=== PATIENT | male | born 1940 | race Caucasian/White ===

== ENCOUNTER 2017-07-27 16:36 | Inpatient (IN) | payer OTHER ==
[2017-07-27] MEDS ORDERED: VANCOMYCIN HCL/NORMAL SALINE 250 ML IV ONE (17:03)
--- NOTE | 2017-07-27 17:05 | EDPHY ---
H & P Time Seen by Provider: 07/27/17 16:46 HPI/ROS: CHIEF COMPLAINT: Right foot redness HISTORY OF PRESENT ILLNESS: Patient had foot surgery earlier this month in July approximately 3 and half weeks ago. This involved the release of his 2nd toe. The patient and his can't remember the exact date. For the past 3 weeks he has had redness and swelling in the right foot and has been on sequentially Augmentin, ciprofloxacin and minocycline, and then oral clindamycin without improvement. 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 Patient's redness is in his right foot and extends fdc up the foot. Still a bit painful but not associated fever or chills. He does have a significant swelling of his foot and lower leg. Not better worse with anything. Symptoms do not radiate. REVIEW OF SYSTEMS: Eye: no change in vision ENT: no sore throat Cardiac: no chest pain or syncope Pulmonary: no cough or SOB Abdomen: no vomiting, diarrhea, abdominal pain Musculoskeletal: Foot symptoms as outlined above, right lower extremity edema. Skin: HPI Neuro: no headache Constitutional: no fever : no urinary symptoms A comprehensive 10 point review of systems is otherwise negative aside from elements mentioned in the history of present illness. PAST MEDICAL HISTORY: Includes type 2 diabetes, Hairy cell leukemia, hypertension. Social history: , here with his spouse. General Appearance: Alert and conversant, cooperative. Eyes: No scleral icterus. ENT, Mouth: Normal mucous membranes. Respiratory: Normal respiratory effort, breath sounds equal, lungs are clear to auscultation. Cardiovascular: Regular rate and rhythm. Both feet warm, appear perfused. Gastrointestinal: Abdomen is soft and non tender. Neurological: Alert and oriented x3. Normally conversant. Face symmetric, he is ambulatory. He does have sensation to light touch in both feet. Skin: Redness and warmth in all the toes of the right foot extending to the mid forefoot. No blisters crepitus or eschar. He does have a callus with a little bit of open wound on the 3rd or middle toe on the plantar surface. Musculoskeletal: Right lower extremity swelling and 3+ edema but compartments are soft. Psychiatric: Not agitated. Emergency Department course/MDM: Patient will be admitted for IV antibiotics and further imaging following failure of outpatient oral antibiotic therapy. Discussed with hospitalist and with Infectious Disease therapeutic consultant Grace Medley who requests vancomycin without other broad-spectrum antibiotics. MRI ordered at the request of his sludge mill operator Dr. Saldana. 1730: CBC reviewed, the patient does not have sepsis or SIRS criteria. 1746: Discussed by phone with Dr. Saldana his sludge mill operator. 1756: DVT in peroneal veins by US, nothing above knee; Dr. Frey. Fei aware , will decide on anticoagulation. 2112: Dr. Reid radiologist will call Dr. Saldana by cell phone regarding MRI foot. Smoking Status: Never smoked Constitutional: Initial Vital Signs Temperature (C) 36.5 C 07/27/17 16:42 Heart Rate 69 07/27/17 16:42 Respiratory Rate 20 07/27/17 16:42 Blood Pressure 154/88 H 07/27/17 16:42 O2 Sat (%) 96 07/27/17 16:42 O2 Delivery Mode Room Air Allergies/Adverse Reactions: Sulfa (Sulfonamide Antibiotics) Allergy (Verified 07/27/17 16:39) contrast dye Allergy (Uncoded 07/27/17 16:39) Home Medications: Medication Instructions Recorded Aspirin [Aspirin 325 mg (*)] 325 mg PO DAILY 07/27/17 Carvedilol [Coreg (*)] 25 mg PO BIDMEAL 07/27/17 Finasteride [Proscar 5 MG (*)] 5 mg PO DAILY 07/27/17 Hydrochlorothiazide [HCTZ (*)] 50 mg PO HS 07/27/17 Lisinopril [Zestril 40 mg (*)] 40 mg PO HS 07/27/17 Multivitamins [Multivitamin (*)] 1 each PO DAILY 07/27/17 Potassium Cl [Klor-Con 10 meq (RX)] 10 meq PO DAILY 07/27/17 Ranitidine HCl [Zantac] 300 mg PO DAILY 07/27/17 Vit A/Vit C/Vit E/Zinc/Copper 1 each PO BID 07/27/17 [Preservision Areds Softgel] metFORMIN HCL [Glucophage 500 mg 500 mg PO BIDMEAL 07/27/17 (*)] Medical Decision Making - Diagnostics Imaging Results: Imaging Impressions Lower Extremity MRI 07/27/17 17:02 Impression: 1. Multifocal osteomyelitis involving the distal second metatarsal, cuboid, calcaneus, talar dome, distal tibia and fibula. 2. Extensive forefoot mid and forefoot edema/cellulitis, with a small abscess beneath the head of the first metatarsal. 3. Oblique nondisplaced fracture of the first proximal phalanx. Dr. Funez discussed preliminary findings by telephone with sludge mill operator Dr. Saldana at 2206 hours on 07/27/2017. Differential Diagnosis: Differential considered including but not limited to cellulitis, fasciitis, abscess, osteomyelitis, DVT. Consult/Admit Bed Type: [place] [id number], [place] [id number] - Data Points Medications Given: Heparin Sodium (Porcine) (Heparin Sc Injection) 5,000 unit SC Q8 DESTINY Stop: 01/23/18 21:59 Last Admin: 07/28/17 06:39 Dose: 5,000 unit Discontinued Medications Vancomycin/Sodium Chloride (Vancomycin 1 Gm (Premix)) 250 mls @ 250 mls/hr IV EDNOW ONE PRN Reason: Protocol Stop: 07/27/17 18:02 Last Admin: 07/27/17 18:22 Dose: 250 mls Departure - Departure Disposition: Foottnlls Inpatient Acute Clinical Impression: Cellulitis of right foot Condition: Fair
[2017-07-27 17:29] LABS: % IMMATURE GRANULYOCYTES 0.2 % (0.0-1.1); ABSOLUTE IMMATURE GRANULOCYTES 0.01 10^3/uL (0.00-0.10); ABSOLUTE NRBC COUNT 0.03 10^3/uL (0-0.01); ADD DIFF? NO; ADD MORPH? NO; ADD SCAN? NO; ATYPICAL LYMPHOCYTE FLAG 20 (0-99); FRAGMENT RBC FLAG 0 (0-99); HEMATOCRIT 32.2 % (40.0-51.0); LEFT SHIFT FLG 0 (0-99); LIPEMIA HEMOLYSIS FLAG 90 (0-99); MEAN CELL HEMOGLOBIN 32.4 pg (27.9-34.1); MEAN CELL HEMOGLOBIN CONCENTR. 34.2 g/dL (32.4-36.7); MEAN PLATELET VOLUME 9.7 fL (8.7-11.7); NRBC-AUTO% 0.5 % (0.0-0.2); PLATELET CLUMPS FLAG 10 (0-99); PLATELET COUNT 199 10^3/uL (150-400); RED BLOOD CELL COUNT 3.39 10^6/uL (4.40-6.38)
[2017-07-27 17:39] LABS: INR 1.11 (0.83-1.16); PROTIME(PATIENT) 14.2 SEC (12.0-15.0)
[2017-07-27 17:40] LABS: APTT 28.6 SEC (23.0-38.0)
[2017-07-27 17:46] LABS: ANION GAP 14 mEq/L (8-16); BILIRUBIN,TOTAL 0.7 mg/dL (0.1-1.4); CALCIUM 9.3 mg/dL (8.5-10.4); CARBON DIOXIDE 25 mEq/l (22-31); CHLORIDE 102 mEq/L (97-110); CREATININE 0.8 mg/dL (0.7-1.3); GLOMERULAR FILTRATION RATE > 60; GLUCOSE 102 mg/dL (70-100); POTASSIUM 3.5 mEq/L (3.5-5.2); SODIUM 141 mEq/L (134-144)
[2017-07-27] MEDS ORDERED: ONDANSETRON 4 MG/2 ML VIAL IVP PRN (18:33)
[2017-07-27] MEDS ORDERED: ACETAMINOPHEN 325 MG TAB PO PRN (18:33)
[2017-07-27] MEDS ORDERED: ONDANSETRON DISINTEGRATING 4 MG TAB PO PRN (18:33)
--- NOTE | 2017-07-27 20:05 | GHP ---
[f rep st] HISTORY AND PHYSICAL DATE OF ADMISSION: 07/27/2017 CHIEF COMPLAINT: Right foot cellulitis versus osteomyelitis. HISTORY OF PRESENT ILLNESS: A very pleasant 76-year-old male with history of diabetes, recent podiatry surgery [address] Saldana. He had his right 2nd toe tendon repair and a wound on the bottom of the foot stitched. In his followup visit in clinic, his foot was noticed to be red, thus he was started on Augmentin. This was not effective, and then was started on Cipro and minocycline. And then again, a 3rd round with clindamycin without improvement. He denies any fevers, chills, or sweats. He did have diarrhea which he attributed to the antibiotic. He has had none recently. It is not painful. He reports the bottom of both his feet is numb. He has noticed increased swelling of the right leg. REVIEW OF SYSTEMS: I completed a 10-point review of systems, negative except as noted in HPI. PAST MEDICAL HISTORY: Diabetes; hypertension; hairy cell leukemia, in remission ; macular degeneration bilaterally. 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 FAMILY HISTORY: Father with CVA and UT. SOCIAL HISTORY: Lives in [place] with his . No illicits, tobacco or alcohol. HOME MEDICATIONS: Ranitidine 300 daily, multivitamin, lisinopril 40 mg at bedtime, hydrochlorothiazide 50 at bedtime, metformin 500 mg b.i.d., Klor-Con 10 daily, finasteride 5 daily, Coreg 25 mg twice daily, aspirin 325. ALLERGIES: Sulfa, contrast dye. PHYSICAL EXAM: VITAL SIGNS: Temperature 36.7, blood pressure 177/92, heart rate in the 70s, respirations 18, 96% on room air. GENERAL: Well-appearing male sitting up in bed, smiling. HEENT: PERRLA. EOMI. Oropharynx clear. CV : Regular rate and rhythm. No murmurs, gallops, or rubs. LUNGS: Clear to auscultation bilaterally. ABDOMEN: Soft, nontender, nondistended. Positive bowel sounds. : No suprapubic tenderness. MUSCULOSKELETAL: Right lower extremity swelling to the knee. Right foot is swollen, warm over the dorsum. There are small incisions on the bottom of foot which have healed. There is ulceration of his 3rd toe with no purulence. It is not tender to palpation. NEURO: 2 through 12 intact. Decreased sensation on the bottom of both feet to light touch. PSYCH: Alert and oriented x3. LABS: WBC 6, hemoglobin 11, hematocrit 32, platelets 199. Coags within normal. Lactate is 1.2. Sodium 145, potassium 3.5, chloride 102, BUN 22, creatinine 0.8, glucose 102, calcium 9.32, total bilirubin 0.9. Lower extremity DVT right below the popliteal fossa, involving the peroneal veins. ASSESSMENT AND PLAN: 1. Right foot cellulitis: failed 3 rounds of outpatient antibiotics. Obtain an MRI to rule out osteomyelitis, IV vancomycin. ID consult in morning. Currently, afebrile without leukocytosis. Dr. Saldana will be in tomorrow to evaluate. 2. Controlled diabetes, continue metformin. 3. Accelerated hypertension. Will resume home medications. 4. Hairy cell leukemia, in remission. 5. Macular degeneration. Continue home eyedrops. 6. Normocytic anemia. Hemoglobin and hematocrit stable. No old to compare. No active bleeding. 7. Provoked right leg DVT: reviewed with Radiology; involving peroneal veins. Current CHEST guidelines state it is reasonable to repeat US in 2 weeks over anticoagulation. Can consider AC if undergoes additional surgery and will have prolonged immobility. Will not anticoagulate at this time. 8. Diet: Diabetic. 9. Disposition: Patient warrants inpatient admission given acute cellulitis requiring intravenous antibiotics and surgical intervention. /[id number]/MODL MTDD
[2017-07-27] MEDS ORDERED: GADOBUTROL 10 ML VIAL IVP ONE (20:34)
[2017-07-27] MEDS: HEPARIN 5,000 UNIT/0.5 ML SYR SC SCH (22:32)
[2017-07-28 05:41] LABS: ANION GAP 9 mEq/L (8-16); CARBON DIOXIDE 26 mEq/l (22-31); CHLORIDE 104 mEq/L (97-110); CREATININE 0.8 mg/dL (0.7-1.3); GLOMERULAR FILTRATION RATE > 60; GLUCOSE 88 mg/dL (70-100); SODIUM 139 mEq/L (134-144)
[2017-07-28] MEDS: HEPARIN 5,000 UNIT/0.5 ML SYR SC SCH (06:39)
--- NOTE | 2017-07-28 07:28 | GHP ---
[f rep st] PREOP HISTORY AND PHYSICAL DATE OF ADMISSION: 07/27/2017 HISTORY OF PRESENT ILLNESS: Patient was admitted last night for puma cellulitis on his foot. He wa s seen in my office yesterday for evaluation of a red hot swollen right foot. He had a previous hist ory of multiple ulcerations on the right lower extremity. Had an office procedure done 1 month prior , had healed uneventfully for 2 weeks, then developed a low-grade red swollen foot. He was placed on antibiotics, first initially Augmentin 500 b.i.d. for 10 days, followed by Cipro 500 mg b.i.d. along with clindamycin 300 mg t.i.d. Continued to have problems with his foot. He was taken off the anti biotics approximately 1 week ago. Developed a red hot swollen foot around the great toe joint. Prev ious procedure was a partial sesamoidectomy on the great toe joint. He was admitted last night for c ellulitis to rule out osteomyelitis. He has had an MRI of the area. The MRI showed probable involve ment of the metatarsal and base of the proximal phalanx with a possible pathologic fracture secondary to the infection in his great toe joint. The patient is a completely neuropathic diabetic from the mid tarsal joint distally. Objectively, he had significant edema and has had chronic edema for years on the right lower extremity, ranging from just below the tibia down to the digital level. The swel ling had gotten significantly worse. Objectively, on vascular evaluation, pulses were nonpalpable du e to the edema on the right lower extremity. They were within normal limits on the left. He has a v yahir red warm area isolated to Lisfranc joint distally and from the 2nd digit medially. The skin was always intact postoperatively. There were no breaks in the skin. No drainage postoperatively. He h ad healed again uneventfully from previous procedure. ASSESSMENT: Cellulitis with probable osteomyelitis. PLAN: At this point, to do a surgical debride this evening. I will plan procedures for around 6:30 this evening to do a metatarsal head resection along with base of the proximal phalanx radical debrid ement of cellulitic osteomyelitic foot. I did consult Dr. Frey's office immediately last night; he w ill be taking over for Infectious Disease. I did consult the emergency room, contacted them immediat sharri for the admission of this patient. He was admitted last night and I will follow up as stated. /[id number]/MODL
--- NOTE | 2017-07-28 08:49 | HOSPPROG ---
Hospitalist Progress Note Assessment/Plan: Patient is a 76-year-old male with a history of diabetes and recent foot surgery [address] Saldana. I reviewed his MRI imaging which showed multifocal osteomyelitis involving the distal 2nd metatarsal, cuboid, calcaneus , talar dome, distal tibia and fibula. In addition he has extensive small forefoot cellulitis with associated abscess. He will be seen by surgery today. In addition infectious Disease will be following up with his care. Today is my 1st encounter with the patient. Chart reviewed. reviewed his care with Dr. Frey. *Right foot cellulitis with questionable associated osteomyelitis OR today He may have neuropathic changes rather than osteomyelitis holding antibiotics for now he has a small abscess under his great toe * diabetes Will hold metformin for now and placed on sliding scale * hypertension blood pressure is 152/80 * hairy cell leukemia In remission *Provoked right leg DVT involving the peroneal veins will need DVT prophylaxis and initiated after surgery should get a follow-up ultrasound in the next few months not on oral anticoagulation at this time * hypokalemia added to IV fluids * plan. Surgery today. Further discussion with Infectious Disease and Dr. Saldana on his hospital stay and he will need antibiotics. Subjective: Thierry has no complaints of pain. overall is feeling well Objective: Vital Signs Temp Pulse Resp BP Pulse Ox 36.9 C 60 18 152/80 H 96 07/28/17 07:38 07/28/17 07:38 07/28/17 07:38 07/28/17 07:38 07/28/17 07:38 Laboratory Results 07/27/17 17:15 07/28/17 05:02 07/27/17 07/28/17 07/29/17 05:59 05:59 05:59 Intake Total 655 Balance 655 PT 14.2 SEC (12.0-15.0) 07/27/17 17:15 INR 1.11 (0.83-1.16) 07/27/17 17:15 - Physical Exam Constitutional: no apparent distress, appears nourished, not in pain Eyes: PERRL Ears, Nose, Mouth, Throat: hearing normal Cardiovascular: regular rate and rhythym Respiratory: no respiratory distress Gastrointestinal: normoactive bowel sounds Skin: other ( right foot and ankle and calf area with some swelling. Right calf is larger than his left calf. His right big toe has some redness. It is not painful to him with touch) Musculoskeletal: full muscle strength Neurologic: AAOx3 Psychiatric: interacting appropriately ICD10 Worksheet Patient Problems: Problems Problem Status Onset Cellulitis of right foot Acute
[2017-07-28] MEDS ORDERED: NON-FORMULARY NEW DRUG (Ranitidine Hcl [Zantac] 300 MG) PO SCH (09:00)
[2017-07-28] MEDS ORDERED: NON-FORMULARY NEW DRUG (Vit A/Vit C/Vit E/Zinc/Copper [Preservision Areds Softgel] 1 EACH) PO SCH (09:00)
[2017-07-28] MEDS ORDERED: POTASSIUM Cl (KCl) 20 MEQ in D5W NS 1,000 ML IV SCH (09:00)
[2017-07-28] MEDS ORDERED: NS W/ 20 KCl/L 1,000 ML IV SCH (09:15)
[2017-07-28] MEDS: CARVEDILOL 25 MG TAB PO SCH ×2 (10:18→22:48)
[2017-07-28] MEDS: MULTIVITAMINS 1 EACH TAB PO SCH (10:19)
[2017-07-28] MEDS: FAMOTIDINE 20 MG TAB PO SCH (10:19)
[2017-07-28] MEDS: FINASTERIDE 5 MG TAB PO SCH (10:19)
--- NOTE | 2017-07-28 10:53 | ASMTCMCOM ---
CM Note CM Note Notes: Pt lives in [place] w . To OR this evening for debridement for R foot infection/cellulitis. Wound care and ID are involved. 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 CM to follow for d/c needs. Date Signed: 07/28/2017 10:52 AM Electronically Signed By:KELSY Sepulveda
--- NOTE | 2017-07-28 11:14 | GCON ---
[f rep st] CONSULTATION INFECTIOUS DISEASE CONSULTATION DATE OF CONSULTATION: 07/28/2017 REFERRING PHYSICIAN: Aneta Enamorado MD Additional referring physician: [place] WhitePJah. REASON FOR CONSULTATION: Postoperative infection of the right foot. HISTORY OF PRESENT ILLNESS: The patient is a 76-year-old male with a past medical history of diabete s mellitus and asplenia, who I am asked to see in consultation for a right great toe postoperative in fection with concern for osteomyelitis. The patient underwent sesamoidectomy of the right great toe approximately 1 month ago. The patient was treated with Augmentin postoperatively when he developed erythema of the right great toe with associated warmth and swelling. He did not improve with Augment in, prompting change in therapy to ciprofloxacin and clindamycin. His great toe remained red and swo llen with warmth. He was unable to determine if this area was tender due to underlying neuropathy. Antibiotics were discontinued and the red, warm, edematous great toe persisted. He describes being o n a fourth antibiotic, although he is unclear what antibiotic this was. The patient was seen in [facility] by Podiatry yesterday with concerns regarding persistent erythema, edema and warmth. He does no t have associated fever or chills. He notes his surgical wounds have healed well. Based on the pers istent erythema, the patient was admitted for IV antibiotics and further evaluation. An MRI of the foot was performed, which showed a subcutaneous rim enhancing fluid collection measurin g 0.6 x 1 x 1.1 cm along the plantar aspect of the foot beneath the head of the 1st metatarsal. Soft tissue edema and enhancement were present. It was also noted that the patient had multifocal enhanc ement of several bones of the foot, including the distal tibia and fibula. The patient has not noted any drainage from his wounds. He received a dose of vancomycin in the emergency department and has not received further antibiotic therapy. Plans by Dr. Saldana are for debridement this evening to fu rther define current process, with possible metatarsal head resection and debridement of the proximal phalanx. The patient has not had any contact with his foot and water sources, such as hot tubs, lak es or streams. No animal contact. Given the above findings, I am now asked to assist in his ongoing management. PAST MEDICAL HISTORY: Type 2 diabetes mellitus, hairy cell leukemia, hypertension, macular degenerat ion. PAST SURGICAL HISTORY: Foot surgery as above, prior splenectomy for hairy cell leukemia. CURRENT MEDICATIONS: Vancomycin 1 g IV x1, Coreg 25 mg p.o. twice daily, Pepcid 20 mg p.o. daily, Pr clark 5 mg p.o. daily, heparin 5000 units subcu q.8 hours, lisinopril 40 mg p.o. at bedtime, multivit garcia p.o. daily. ALLERGIES: Sulfonamides, associated with hives. Contrast dye, associated with hives. SOCIAL HISTORY: The patient does not smoke, drink alcohol or use drugs. No pets at home. FAMILY HISTORY: Macular degeneration, coronary artery disease, stroke. REVIEW OF SYSTEMS: Outside that noted in the HPI, the remainder of a 10-system review is unremarkabl e and the patient notes that he has not had increased difficulty with glycemic control. PHYSICAL EXAMINATION: VITAL SIGNS: Temperature 36.9, heart rate 60, respiratory rate 18, blood pres sure 152/80, oxygen saturation 98% on room air. GENERAL: The patient is well-nourished, well-develo ped, in no acute distress. He appears nontoxic. HEENT: There is no scleral icterus, conjunctival i njection, or conjunctival petechiae. Oropharynx clear, without lesions. Dentition is in good repair . Mucous membranes are moist. There is no nasal discharge. There is no tenderness over the frontal , maxillary or mastoid area. NECK: Supple, without palpable lymphadenopathy or thyromegaly. CHEST: Clear to auscultation bilaterally, without adventitious sounds. Respiratory effort is normal. CAR DIOVASCULAR: Regular rate and rhythm, without murmurs, gallops, or rubs. ABDOMEN: Soft, nontender, nondistended. There is no palpable organomegaly. Bowel sounds are present. MUSCULOSKELETAL: The right lower extremity shows edema over the foot and lower leg to the knee; the right great toe is kevin ssly edematous with overlying erythema and warmth, without tenderness. Surgical incisions are well-h ealed. There is a small ulceration over the tip of the 3rd toe, without surrounding erythema. Dorsa lis pedis pulse is 2+. SKIN: See musculoskeletal exam. There are no stigmata of endocarditis. The skin is warm and dry to touch. NEUROLOGIC: The patient is alert and interacts appropriately with t he examiner. Cranial nerves 2-12 are grossly intact. Sensation is decreased in the right foot. Mus keke tone and bulk are normal. LABORATORY DATA: White blood cell count 6.4, hematocrit 32.2, platelets 199, neutrophils 62%, lympho cytes 32%. Serum creatinine is 0.8. INR is 1.1. Venous lactate is 1.2. Blood cultures x2 sets are pending. IMAGING: MRI, as outlined above, which was reviewed and interpreted by me today. Lower extremity ul trasound shows DVT below the right popliteal fossa involving the peroneal veins. IMPRESSION: Right great toe postoperative infection. Findings most compatible with infectious etiol ogy postoperatively, with concern for small abscess under the great toe with possibility of concomita nt osteomyelitis. Most likely pathogens in this setting would include gram-positive patti, such as S taphylococcus aureus or beta-hemolytic streptococci. Noninfectious etiologies, given the chronicity of symptoms and lack of response to antibiotics, are also of consideration although, based on timing, seem less likely. The MRI findings throughout the foot and tibia/fibula are most likely related to neuropathic changes rather than osteomyelitis, as clinically this would be atypical for infection to involve the entirety of the foot without significant inflammatory findings throughout or systemic ill ness being present. RECOMMENDATIONS: 1. Agree with plans for debridement to further define above etiology and obtain additional culture d winter. 2. Observe off antibiotics pending surgical findings. 3. Will review further with Dr. Saldana. Thank you for this consultation. We will continue to follow the patient with you. /[id number]/MODL
[2017-07-28] MEDS ORDERED: D50W 25 GM/50 ML SYR IVP PRN (15:56)
[2017-07-28] MEDS ORDERED: D10W 250 ML PRN HYPOGLYCEMIA IV (16:30)
[2017-07-28] MEDS: PRESERVISION AREDS2 FORMULA EYE VIT 1 EACH PO SCH (19:32)
[2017-07-28] MEDS: INSULIN LISPRO 100 UNIT/ML SC SCH (19:32)
[2017-07-28] MEDS ORDERED: GENTAMICIN SULFATE 80 MG/2 ML VIAL ONE (19:41)
[2017-07-28] MEDS ORDERED: LR 1,000 ML IV ONE (19:44)
[2017-07-28] MEDS ORDERED: BUPIVACAINE 0.25% 30 ML SDV ONE (19:50)
[2017-07-28] MEDS ORDERED: LIDOCAINE 1% 300 MG/30 ML SDV ONE (19:50)
--- NOTE | 2017-07-28 19:50 | PDANEPAE ---
ANE History of Present Illness 76 year old male presents for I&D of foot. ANE Past Medical History - Cardiovascular History Hx Hypertension: Yes Hx Arrhythmias: No Hx Chest Pain: No Hx Coronary Artery / Peripheral Vascular Disease: No Hx CHF / Valvular Disease: No Hx Palpitations: No - Pulmonary History Hx COPD: No Hx Asthma/Reactive Airway Disease: No Hx Recent Upper Respiratory Infection: No Hx Oxygen in Use at Home: No Hx Sleep Apnea: No Sleep Apnea Screening Result - Last Documented: Positive - Endocrine History Hx Diabetes: Yes Hypothyroid: No Hyperthyroid: No Obesity: mild - Renal History Hx Renal Disorders: No - Liver History Hx Hepatic Disorders: No - Neurological & Psychiatric Hx Hx Neurological and Psychiatric Disorders: Yes Neurological / Psychiatric History Comment: Neuropathy from diabetes - GI History GERD: no Hx Gastrointestinal Disorders: No - Chronic Pain History Chronic Pain: No - Surgical History Prior Surgeries: Splenectomy. Rotator Cuff x 2 ANE Review of Systems Review of systems is: negative Review of Systems: - Exercise capacity Exercise capacity: >=4 METS ANE Patient History - Allergies Allergies/Adverse Reactions: Sulfa (Sulfonamide Antibiotics) Allergy (Verified 07/27/17 16:39) contrast dye Allergy (Uncoded 07/27/17 16:39) - Home Medications Home medications: home medication list seen and reviewed Home Medications: Aspirin [Aspirin 325 mg (*)] 325 mg PO DAILY 07/27/17 [Last Taken 07/27/17] Carvedilol [Coreg (*)] 25 mg PO BIDMEAL 07/27/17 [Last Taken 07/27/17 07:00] Finasteride [Proscar 5 MG (*)] 5 mg PO DAILY 07/27/17 [Last Taken 07/27/17] Hydrochlorothiazide [HCTZ (*)] 50 mg PO HS 07/27/17 [Last Taken 07/26/17] Lisinopril [Zestril 40 mg (*)] 40 mg PO HS 07/27/17 [Last Taken 07/26/17] Multivitamins [Multivitamin (*)] 1 each PO DAILY 07/27/17 [Last Taken 07/27/17] Potassium Cl [Klor-Con 10 meq (RX)] 10 meq PO DAILY 07/27/17 [Last Taken ] Ranitidine HCl [Zantac] 300 mg PO DAILY 07/27/17 [Last Taken 07/27/17] Vit A/Vit C/Vit E/Zinc/Copper [Preservision Areds Softgel] 1 each PO BID [Last Taken 07/27/17 07:00] metFORMIN HCL [Glucophage 500 mg (*)] 500 mg PO BIDMEAL 07/27/17 [Last Taken 07:00] - NPO status NPO Status: no food or drink >8 hours NPO Since - Liquids (Date): 07/28/17 NPO Since - Liquids (Time): 11:00 NPO Since - Solids (Date): 07/28/17 NPO Since - Solids (Time): 11:00 - Anes Hx Anes Hx: no prior problems - Smoking Hx Smoking Status: Never smoked - Family Anes Hx Family Anes Hx: neg - N/A ANE Labs/Vital Signs - Labs Result Diagrams: 07/27/17 17:15 07/28/17 05:02 - Vital Signs Vital Signs: reviewed preoperatively; see RN documention for details Blood Pressure: 170/96 Heart Rate: 59 Respiratory Rate: 18 O2 Sat (%): 95 Height: 180.34 cm Weight: 87.997 kg ANE Physical Exam - Airway Neck exam: FROM Mallampati Score: Class 2 Mouth exam: abnormal chin (Short thyromental distance) - Pulmonary Pulmonary: no respiratory distress - Cardiovascular Cardiovascular: regular rate and rhythym - ASA Status ASA Status: III ANE Anesthesia Plan Anesthesia Plan: MAC Total IV Anesthesia: Yes
[2017-07-28] MEDS ORDERED: PROPOFOL/EMULSION 500 MG/50 ML BOTTLE IV ONE (19:53)
[2017-07-28] MEDS ORDERED: NALOXONE HCL 0.4 MG/ML INJ IVP PRN (20:08)
[2017-07-28] MEDS ORDERED: ONDANSETRON 4 MG/2 ML VIAL IVP PRN (20:18)
[2017-07-28] MEDS ORDERED: LISINOPRIL 40 MG TAB PO SCH (21:00)
[2017-07-28] MEDS: VANCOMYCIN 1.25 GM in D5W 250 ML IV SCH (21:00)
[2017-07-28] MEDS ORDERED: fentaNYL 100 MCG/2 ML INJ ONE (21:31)
[2017-07-28] MEDS: fentaNYL 100 MCG/2 ML INJ IVP PRN ×2 (21:34→21:56)
--- NOTE | 2017-07-28 22:07 | POSTANESTH ---
Post Anesthetic Evaluation Cardiovascular Status: Normal, Stable, Similar to Pre-Op Cond Respiratory Status: Normal, Stable, Similar to Pre-op Cond. Level of Consciousness/Mental Status: Can Participate in Eval, Alert and Oriented Pain Control: Adequate, Prn Tx Ordered Nausea/Vomiting Control: Adequate, Prn Tx Ordered Complications Possibly Related to Anesthesia: None Noted
[2017-07-28] MEDS ORDERED: HYDROCODONE/APAP 10/325 TAB PO PRN (22:41)
[2017-07-28] MEDS ORDERED: oxyCODONE IR 5 MG TAB PO PRN (22:42)
[2017-07-29 05:29] LABS: % IMMATURE GRANULYOCYTES 0.3 % (0.0-1.1); ABSOLUTE IMMATURE GRANULOCYTES 0.02 10^3/uL (0.00-0.10); ABSOLUTE NRBC COUNT 0.05 10^3/uL (0-0.01); ADD DIFF? NO; ADD MORPH? NO; ADD SCAN? NO; ATYPICAL LYMPHOCYTE FLAG 10 (0-99); FRAGMENT RBC FLAG 0 (0-99); HEMATOCRIT 30.4 % (40.0-51.0); HEMOGLOBIN 10.2 g/dL (13.7-17.5); LEFT SHIFT FLG 0 (0-99); LIPEMIA HEMOLYSIS FLAG 80 (0-99); MEAN CELL HEMOGLOBIN CONCENTR. 33.6 g/dL (32.4-36.7); MEAN CELL VOLUME 95.3 fL (81.5-99.8); MEAN PLATELET VOLUME 9.8 fL (8.7-11.7); NRBC-AUTO% 0.8 % (0.0-0.2); PLATELET CLUMPS FLAG 0 (0-99); PLATELET COUNT 187 10^3/uL (150-400); RED BLOOD CELL COUNT 3.19 10^6/uL (4.40-6.38); RED CELL DISTRIBUTION WIDTH 16.6 % (11.5-15.2)
[2017-07-29 05:38] LABS: ANION GAP 9 mEq/L (8-16); CALCIUM 8.5 mg/dL (8.5-10.4); CARBON DIOXIDE 25 mEq/l (22-31); CHLORIDE 105 mEq/L (97-110); CREATININE 0.7 mg/dL (0.7-1.3); GLOMERULAR FILTRATION RATE > 60; GLUCOSE 90 mg/dL (70-100); POTASSIUM 3.1 mEq/L (3.5-5.2); SODIUM 139 mEq/L (134-144)
[2017-07-29] MEDS: FINASTERIDE 5 MG TAB PO SCH (09:30)
[2017-07-29] MEDS: MULTIVITAMINS 1 EACH TAB PO SCH (09:30)
[2017-07-29] MEDS: PRESERVISION AREDS2 FORMULA EYE VIT 1 EACH PO SCH (09:30)
[2017-07-29] MEDS: CARVEDILOL 25 MG TAB PO SCH (09:30)
[2017-07-29] MEDS: FAMOTIDINE 20 MG TAB PO SCH (09:30)
[2017-07-29] MEDS: VANCOMYCIN 1.25 GM in D5W 250 ML IV SCH (09:31)
[2017-07-29] MEDS: INSULIN LISPRO 100 UNIT/ML SC SCH ×2 (09:32→12:17)
--- NOTE | 2017-07-29 10:55 | PCMIDPN ---
Assessment/Plan: Assessment/Plan: * Right great toe postoperative infection versus noninfectious inflammatory arthropathy: Status post debridement yesterday with firm bone noted without overt findings of septic arthritis. Gram stain of both operative specimens negative with cultures pending. Think can transition to oral doxycycline 100 mg twice daily pending cultures and pathologic findings. Prefer this approach over PICC line and IV antibiotics given possibility this may be noninfectious in etiology. If IV antibiotics become necessary based on cultures or pathology results, these can be arranged as an outpatient. Will have follow-up in my office next week. Clinical findings and plan reviewed with the patient and both Chary Gerardo NP and Dr. Saldana. 07/29/17 10:52 Subjective: Patient status post debridement of right great toe. Operative findings reviewed with Dr. Saldana noting firm bone and no overt findings of septic arthritis. Objective: Vital Signs Temp Pulse Resp BP Pulse Ox 36.6 C 73 18 153/85 H 94 07/29/17 08:00 07/29/17 08:00 07/29/17 08:00 07/29/17 08:00 07/29/17 08:00 Microbiology 07/28/17 20:57 Gram Stain - Final Toe - Tissue 07/28/17 20:30 Gram Stain - Final Toe - Eswab 07/28/17 20:30 Mycobacterial Smear (JOS) - Final Toe - Eswab Mycobacterial Culture - Final Laboratory Results 07/29/17 05:18 07/29/17 05:18 07/28/17 07/29/17 07/30/17 05:59 05:59 05:59 Intake Total 655 453 Output Total 550 Balance 655 -97 Operative specimens showing negative Gram stain with cultures pending Pathology specimens pending Blood cultures x2 no growth Vancomycin # 2 - Physical Exam General Appearance: alert EENT: No scleral icterus Extremities: inflammation (Right foot dressed postoperatively without erythema above dressing, 2+ edema present of lower extremity) Lymphatic: other (No lymphangitis in right lower extremity) ICD10 Worksheet Patient Problems: Problems Problem Status Onset Cellulitis of right foot Acute
--- NOTE | 2017-07-29 11:39 | GOP ---
[f rep st] OPERATIVE REPORT DATE OF OPERATION: 07/28/2017 SURGEON: Antonio Saldana DPM COPPER PLATE PRINTER: No assistants were utilized in the procedure. ANESTHESIA: IV MAC, plus a local infiltration of 10 cc of 0.5% Marcaine plain. PREOPERATIVE DIAGNOSIS: Suspected osteomyelitis with cellulitis, right great toe joint. POSTOPERATIVE DIAGNOSIS: Suspected osteomyelitis with cellulitis, right great toe joint. PROCEDURE PERFORMED: Debridement of great toe joint, right, with bone biopsy and tissue biopsies on the right great toe. FINDINGS: SPECIMENS: There were bone specimens sent from the proximal phalanx and the metatarsal, as well as t issue cultures and a swab culture. ESTIMATED BLOOD LOSS: Approximately 10 cc. DESCRIPTION OF PROCEDURE: The patient was taken the operating room and placed in supine position. Af ter a local Marcos block of said anesthesia, the right lower extremity was elevated, prepped, and drape d in the usual sterile OR fashion, achieving a sterile field about the entire distal aspect of the ex tremity. Attention was directed to the medial aspect of the right great toe joint, where an approximately 3 in ch linear incision was made medial to the 1st metatarsophalangeal joint. Dissection was carried down to the level of the joint capsule. There was good bleeding throughout the entire procedure. Superfici al vessels were clamped, bovied and tied as necessary. There was no subcutaneous necrotic tissue note d intraoperatively. I did take multiple tissue samples plantar to the great toe joint, near the sesam oidal apparatus, where the patient had had surgery previously. The joint capsule was entered via a li near incision, reflected dorsally and plantarly. I inspected the sesamoidal apparatus. The cartilage on the sesamoid looked healthy. The bone was solid. There was no discoloration or necrosis of any of the bone specimens. I took a bony specimen off the base of the proximal phalanx as well as the head o f the metatarsal. On the medial aspect of the metatarsal head, also, there was another specimen taken . These were sent for pathologic histologic evaluation for osteomyelitis. I reinspected the area 3 di fferent times. I looked plantarly and dorsally over the joint, could not find any significant necroti c or tissue over the area. I flushed the area copiously. We used a pulsed lavage with gentamicin postoperatively. Deep closure, capsular closure was carried out via 3-0 Vicryl in a simple interrupt ed suture, subcu closure was carried out via 4-0 Vicryl in a horizontal mattress suture, and skin veronika sure was carried out via 3-0 Prolene in a simple interrupted suture. There was good active bleeding t hroughout the entire procedure. Adaptic sterile dressing of 4x4s, Kayce, Coban, and Kerlix was placed over the foot. The patient went into recovery in a satisfactory state, with all vital signs stable. He was admitted back to the floor, room 356 med/surg floor, for observation, and I anticipate discharge of the patien t after a PICC line is placed on , the 29 of July. His prognosis is very good at this point. It is much better than it was based on the significant lack of pathology intraoperatively. I a nticipate him healing fairly rapidly. He will be followed up at [facility] weekl y until he is completely healed. COMPLICATIONS: There were no complications. DRAINS: No drains were placed in the operative site. /[id number]/MODL
[2017-07-29 11:45] VITALS: BP 135/75; PULSE 64; RESP 16; TEMP 97.7; O2SAT 95
--- NOTE | 2017-07-29 13:15 | ASMTCMCOM ---
CM Note CM Note Notes: Spoke w/RN, pt will dc home w/support of . CM available for any changes. Date Signed: 07/29/2017 01:14 PM Electronically Signed By:Cristy Peters RN
--- NOTE | 2017-07-29 14:10 | GDS ---
[f rep st] DISCHARGE SUMMARY DISCHARGE DIAGNOSES: Right great toe postoperative infection versus noninfectious inflammatory arthr opathy. CONSULTATIONS: 1. Dr. Saldana. 2. Infectious Disease. STUDIES AND PROCEDURES DONE: 1. Lower extremity MRI. 2. Venous Doppler study. 3. Debridement of the great right toe joint. PHYSICAL EXAM: GENERAL: The patient is alert. VITAL SIGNS: Afebrile at 36.5, pulse is 64, respira tory rate 16, blood pressure is 135/75. He is saturating 95% on room air. I have seen and evaluated the patient on the day of discharge. HOSPITAL COURSE: 1. The patient is a 76-year-old male who was admitted to the hospital secondary to right foot erythe ma. He was evaluated and diagnosed with right foot cellulitis versus noninfectious inflammatory arth ropathy. During this hospitalization, he did receive a consultation from Infectious Disease. He was taken to the operating room by Dr. Saldana, with surgical intervention and debridement being perform ed of the right foot. Pathologies are pending at the time of disposition, as well as microbiology re sults. The patient has been placed on oral doxycycline and will follow up in the outpatient setting with further recommendations made by Dr. Frey, as well as Dr. Saldana. 2. Diabetes. We will restart the patient's previously prescribed home medications. 3. Hypertension. Have not added any additional antihypertensive medications during this hospital co urse. DISPOSITION: The patient will be discharged home. Pending studies include microbiology as well as p athology. DISCHARGE MEDICATIONS: Please refer to EMR form. I have provided a prescription to the patient for doxycycline 100 mg p.o. b.i.d. #20 at the time of disposition. PLAN: I have reviewed the patient's disposition and plan with Dr. Sven Frey. TIME SPENT: Greater than 35 minutes were spent in this patient's discharge and counseling. /[id number]/MODL
--- NOTE | 2017-07-29 15:04 | ASDISCHSUM ---
Discharge Information Plan Status:Home with No Needs Medically Cleared to Leave: Discharge Date:07/29/2017 01:40 PM CM D/C Disposition:Home, Routine, Self-Care ADT D/C Disposition:Home, Routine, Self-Care Projected Discharge Date:07/29/2017 01:40 PM Transportation at D/C:Family Discharge Delay Reason: Follow-Up Date:07/29/2017 01:40 PM Discharge Slot: Final Diagnosis: Placement Information Patient Contact Information Contact Name:WESLEY Relationship: Address:[address] Work Phone: City:[facility] Phone: [facility]/Zip Code:[place] [address] Email: Financial Information Financial Class: Primary Plan Desc:MEDICARE INPATIENT Primary Plan Number:[id number] Secondary Plan Desc:[facility] Secondary Plan Number:[id number] Assessment Information [facility] CM Progress Note CM Note CM Note Notes: Pt lives in [place] w . To OR this evening for debridement for R foot infection/cellulitis. Wound care and ID are involved. Pt may require manager long term care IV antibiotics. CM to follow for d/c needs. Date Signed: 07/28/2017 10:52 AM Electronically Signed By:KELSY Sepulveda [facility] CM Progress Note CM Note CM Note Notes: Spoke w/RN, pt will dc home w/support of . CM available for any changes. Date Signed: 07/29/2017 01:14 PM Electronically Signed By:Cristy Peters RN Intervention Information Intervention Type:*IM-Signed Date of Service:07/29/2017 11:03 AM Patient Type:Inpatient Staff Member:Shahrzad Keyes Hours: Discipline: Severity: Comment:
== END 2017-07-29 13:40 | disposition home or self-care (01) | DRG 629 ==
LOC: F3N 18:19 → F3E 07-28 13:00
PROVIDERS: ADMIT Internal Medicine; ATTEND Internal Medicine
PROC: 0QBQ0ZX Excision of Right Toe Phalanx, Open Approach, Diagnostic (ICD-10-PCS; principal; 2017-07-28 19:30)
PROC: 0QBN0ZX Excision of Right Metatarsal, Open Approach, Diagnostic (ICD-10-PCS; principal; 2017-07-28 19:30)
DX: E11.618 Type 2 diabetes mellitus with other diabetic arthropathy (principal); T81.4XXA Infection following a procedure, initial encounter; L03.115 Cellulitis of right lower limb; C91.41 Hairy cell leukemia, in remission; I10 Essential (primary) hypertension; H35.30 Unspecified macular degeneration; I82.4Z1 Acute embolism and thrombosis of unspecified deep veins of right distal lower extremity
CPT/HCPCS: 96374; A9585; J2704; J3010; J3370